=== PATIENT | female | born 1990 | race Caucasian/White ===

== ENCOUNTER 2021-09-08 15:57 | Emergency (ER) | payer OTHER ==
[2021-09-08] MEDS ORDERED: ACETAMINOPHEN 325 MG TABLET PO STA (17:09)
--- NOTE | 2021-09-08 17:09 | ED Physician Documentation ---
PD HPI FEMALE - Stated complaint Stated Complaint: POST OP BLEEDING/FEMALE - Chief complaint Chief Complaint: Abd Pain - History obtained from History obtained from: Patient - Additional information Additional information: Had a [facility]. Has not had sex yet but started working out with her prosthetic makeup designer permission about a week ago and started to having some bleeding. She stopped working out but bleeding became progressive and is now going through a pad an hour and feeling weak and dizzy. Review of Systems Ten Systems: 10 systems reviewed and negative Constitutional: denies: Fever, Chills Nose: denies: Rhinorrhea / runny nose, Congestion Cardiac: reports: Reviewed and negative Respiratory: reports: Reviewed and negative PD PAST MEDICAL HISTORY - Present Medications Home Medications: Ambulatory Orders Medication Instructions Recorded Confirmed Etonogestrel/Ethinyl Estradiol 09/08/21 [Nuvaring Vaginal Ring] - Allergies Allergies/Adverse Reactions: Allergies Allergy/AdvReac Type Severity Reaction Status Date / Time Sulfa (Sulfonamide Allergy Rash Verified 09/08/21 16:24 Antibiotics) PD ED PE NORMAL - Vitals Vital signs reviewed: Yes - General General: Alert and oriented X 3, No acute distress - HEENT HEENT: PERRL, EOMI - Neck Neck: Supple, no meningeal sign, No bony TTP - Cardiac Cardiac: RRR, No murmur - Respiratory Respiratory: No respiratory distress, Clear bilaterally - Abdomen Abdomen: Normal bowel sounds, Soft, Non tender - Female Female : Other (Pelvic exam deferred as the prosthetic makeup designer was coming in anyway and there was a high risk that she would probably need an intervention of some sort given the complaint.) - Extremities Extremities: No edema, No calf tenderness / cord - Neuro Neuro: Alert and oriented X 3, Normal speech Results - Vitals Vitals: Vital Signs - 24 hr 09/08/21 09/08/21 09/08/21 16:18 16:23 18:23 Temperature 35.4 C L 36.5 C 36.5 C Heart Rate 80 80 80 Respiratory 18 18 16 Rate Blood Pressure 122/69 122/69 120/60 O2 Saturation 96 96 96 Oxygen O2 Source Room air - Labs Labs: Laboratory Tests 09/08/21 09/08/21 09/08/21 16:55 16:55 16:55 WBC 5.4 RBC 4.67 Hgb 13.9 Hct 42.2 MCV 90.4 MCH 29.8 MCHC 32.9 RDW 12.3 Plt Count 239 MPV 10.5 Neut # (Auto) 3.3 Lymph # (Auto) 1.4 L [place] # (Auto) 0.5 Eos # (Auto) 0.1 Baso # (Auto) 0.0 Absolute Nucleated RBC 0.00 Nucleated RBC % 0.0 Sodium 136 Potassium 4.1 Chloride 102 Carbon Dioxide 24 Anion Gap 10.0 BUN 15 Creatinine 0.7 Estimated GFR (MDRD) 98 Glucose 90 Calcium 9.2 Total Bilirubin 0.4 AST 20 ALT 14 Alkaline Phosphatase 41 L Total Protein 7.4 Albumin 4.0 Globulin 3.4 Albumin/Globulin Ratio 1.2 Lipase 41 Serum HCG, Qual NEGATIVE PD MEDICAL DECISION MAKING - ED course ED course: She was seen by Dr. Toribio, gynecology. She cauterized there was bleeding area on her LEEP incision. Departure - Departure Disposition: 01 Home, Self Care Clinical Impression: Bleeding of cervix, Postoperative bleeding from incision Condition: Good Record reviewed to determine appropriate education?: Yes Comments: No exercise or sex until you follow-up with your prosthetic makeup designer next week as scheduled. Return for new or worsening symptoms. Blood work is normal with no evidence of anemia. Discharge Date/Time: 09/08/21 18:31
[2021-09-08 17:13] LABS: BASOPHILS % (AUTO) 0.6 %; EOSINOPHILS # (AUTO) 0.1 10^3/uL (0.0-0.7); EOSINOPHILS % (AUTO) 2.4 %; HCT - HEMATOCRIT 42.2 % (37.0-47.0); HGB - HEMOGLOBIN 13.9 g/dL (12.0-16.0); LYMPHOCYTES # (AUTO) 1.4 10^3/uL (1.5-3.5); LYMPHOCYTES % (AUTO) 25.8 %; MEAN CORPUSCULAR HEMOGLOBIN 29.8 pg (27.0-31.0); MEAN CORPUSCULAR HGB CONC 32.9 g/dL (32.0-36.0); MEAN CORPUSCULAR VOLUME 90.4 fL (81.0-99.0); MEAN PLATELET VOLUME 10.5 fL (7.9-10.8); MONOCYTES # (AUTO) 0.5 10^3/uL (0.0-1.0); MONOCYTES % (AUTO) 9.9 %; NEUTROPHILS # (AUTO) 3.3 10^3/uL (1.5-6.6); NEUTROPHILS % (AUTO) 61.1 %; PLT - PLATELET COUNT 239 10^3/uL (130-450); RED BLOOD COUNT 4.67 10^6/uL (4.20-5.40); RED CELL DISTRIBUTION WIDTH 12.3 % (12.0-15.0); WHITE BLOOD COUNT 5.4 x10^3/uL (4.8-10.8)
[2021-09-08 17:17] LABS: ALBUMIN/GLOBULIN RATIO 1.2 (1.0-2.2); BILIRUBIN,TOTAL 0.4 mg/dL (0.2-1.0); CALCIUM 9.2 mg/dL (8.5-10.3); CREATININE 0.7 mg/dL (0.4-1.0); POTASSIUM 4.1 mmol/L (3.5-5.0); TOTAL PROTEIN 7.4 g/dL (6.7-8.2)
[2021-09-08 17:47] LABS: HCG,QUALITATIVE BLOOD NEGATIVE
[2021-09-08] MEDS ORDERED: IBUPROFEN 600 MG TABLET PO STA (18:14)
[2021-09-08 18:31] VITALS: BP 120/60
--- NOTE | 2021-10-01 23:42 | CONSULTATION NOTE ---
Referring Provider Name of Referring Provider:: Dr. Alexander Consult Date: 09/08/21 History of Present Illness - History of Present Illness HPI Comment/Other: Patient is a 30 yo F who presents with vaginal bleeding s/p LEEP on 09/08/21 HPI: Patient presented to ED with vaginal bleeding after extensive exercise. No recent IC. Had undergone at [facility]21. Dr. Alexander requested CONTINUOUS MINER OPERATOR HELPER assessment. No pain/fever/chills. Moderate flow of blood. No lightheadedness or dizziness. ROS: As per HPI, otherwise remaining systems are negative. PE: VS: 97.7 80 120/60 16 96% GEN: NAD HEENT: NCAT RESP: normal effort CV: RR ABD: S&NT/ND PSYCH: appropriate affect NEURO: A&O EXT: WWP. no LE edema CONTINUOUS MINER OPERATOR HELPER: Normal appearing external female genitalia. Nl BSUMA. Speculum exam revealed normal vaginal mucosa with moderate blood in vault. Cervix with healing LEEP bed with bleeding at wound edge at 8:00. Silver nitrate applied to area of bleeding. Good hemostasis noted. A/P: 30 yo F with post-LEEP bleeding -Silver nitrate applied to LEEP bed. Good hemostasis noted -Recommended extending pelvic rest an additional 2 weeks -Warning signs reviewed -Cleared for DC per CONTINUOUS MINER OPERATOR HELPER assessment Meds/Allgy - Home Medications Home Medications: Ambulatory Orders Medication Instructions Recorded Confirmed Etonogestrel/Ethinyl Estradiol 1 applic IU ONCE 09/08/21 09/25/21 [Nuvaring Vaginal Ring] - Allergies Allergies/Adverse Reactions: Allergies Allergy/AdvReac Type Severity Reaction Status Date / Time Sulfa (Sulfonamide Allergy Rash Verified 09/25/21 12:30 Antibiotics) Conclusion/Plan - Lab Results Fish Bones: 09/08/21 16:55 09/08/21 16:55
== END 2021-09-08 18:31 | disposition home or self-care (01) ==
LOC: ED 15:57
DX: N99.820 Postprocedural hemorrhage of a genitourinary system organ or structure following a genitourinary system procedure (principal)
CPT/HCPCS: 36415; 80053; 83690; 84703; 85025; 99282; 99283; A9270

== ENCOUNTER 2021-09-25 12:22 | Emergency (ER) | payer OTHER ==
--- NOTE | 2021-09-25 12:42 | ED Physician Documentation ---
PD HPI FEMALE - Stated complaint Stated Complaint: SURGERY COMPLICATIONS - Chief complaint Chief Complaint: Abd Pain - History obtained from History obtained from: Patient - Additional information Additional information: She had a LEEP procedure on August 19. Subsequently was seen here on September 08 for bleeding. OB consulted and cauterized it. She was doing well since then but had a very light jog yesterday and last night started bleeding and today the bleeding is much heavier. She does have mild cramping with it. Review of Systems Constitutional: denies: Fever, Chills GI: reports: Reviewed and negative : reports: Reviewed and negative PD PAST MEDICAL HISTORY - Past Medical History Past Medical History: Yes Cardiovascular: None Respiratory: None Neuro: None Endocrine/Autoimmune: None GI: None CAR SHAGGER: Other : None HEENT: None Psych: None Musculoskeletal: None Derm: None - Past Surgical History Past Surgical History: Yes /CAR SHAGGER: LEEP (Cervical surgery) - Present Medications Home Medications: Ambulatory Orders Medication Instructions Recorded Confirmed Etonogestrel/Ethinyl Estradiol 1 applic IU ONCE 09/08/21 09/25/21 [Nuvaring Vaginal Ring] - Allergies Allergies/Adverse Reactions: Allergies Allergy/AdvReac Type Severity Reaction Status Date / Time Sulfa (Sulfonamide Allergy Rash Verified 09/25/21 12:30 Antibiotics) - Social History Does the pt smoke?: No Smoking Status: Never smoker - Immunizations Immunizations are current?: Yes PD ED PE NORMAL - Vitals Vital signs reviewed: Yes - General General: Alert and oriented X 3, No acute distress - Abdomen Abdomen: Normal bowel sounds, Soft, Non tender - Derm Derm: Normal color, Warm and dry - Extremities Extremities: No edema, No calf tenderness / cord - Neuro Neuro: Alert and oriented X 3, Normal speech Results - Vitals Vitals: Vital Signs - 24 hr 09/25/21 09/25/21 12:31 13:37 Temperature 36.8 C Heart Rate 66 65 Respiratory 16 16 Rate Blood Pressure 115/71 109/89 H O2 Saturation 97 99 Oxygen O2 Source Room air - Labs Labs: Laboratory Tests 09/25/21 09/25/21 09/25/21 12:52 12:52 12:52 WBC 3.4 L RBC 4.25 Hgb 12.7 Hct 37.6 MCV 88.5 MCH 29.9 MCHC 33.8 RDW 12.5 Plt Count 193 MPV 10.7 Neut # (Auto) 1.8 Lymph # (Auto) 1.2 L [place] # (Auto) 0.4 Eos # (Auto) 0.1 Baso # (Auto) 0.0 Absolute Nucleated RBC 0.00 Nucleated RBC % 0.0 Sodium 136 Potassium 4.0 Chloride 103 Carbon Dioxide 24 Anion Gap 9.0 BUN 12 Creatinine 0.6 Estimated GFR (MDRD) 117 Glucose 83 Calcium 9.0 Serum HCG, Qual NEGATIVE Blood Type Antibody Screen 09/25/21 12:52 WBC RBC Hgb Hct MCV MCH MCHC RDW Plt Count MPV Neut # (Auto) Lymph # (Auto) [place] # (Auto) Eos # (Auto) Baso # (Auto) Absolute Nucleated RBC Nucleated RBC % Sodium Potassium Chloride Carbon Dioxide Anion Gap BUN Creatinine Estimated GFR (MDRD) Glucose Calcium Serum HCG, Qual Blood Type A NEGATIVE Antibody Screen NEGATIVE PD MEDICAL DECISION MAKING - ED course ED course: Spoke with PRINT OPERATOR media sales consultant, Dr. Cochran at 1246, she will come and see the patient. Requests blood be drawn in the interim. On-call OB did come and see the patient and cauterized her again. Departure - Departure Disposition: Home, Self Care Clinical Impression: Bleeding of cervix, Postoperative bleeding from incision Condition: Good Record reviewed to determine appropriate education?: Yes Instructions: ED Bleed Irregular Vaginal Comments: Return if you worsen, follow-up with your PRINT OPERATOR in a week or so.
[2021-09-25 12:59] LABS: BASOPHILS % (AUTO) 0.6 %; EOSINOPHILS # (AUTO) 0.1 10^3/uL (0.0-0.7); HCT - HEMATOCRIT 37.6 % (37.0-47.0); HGB - HEMOGLOBIN 12.7 g/dL (12.0-16.0); LYMPHOCYTES # (AUTO) 1.2 10^3/uL (1.5-3.5); LYMPHOCYTES % (AUTO) 35.1 %; MEAN CORPUSCULAR HEMOGLOBIN 29.9 pg (27.0-31.0); MEAN CORPUSCULAR HGB CONC 33.8 g/dL (32.0-36.0); MEAN CORPUSCULAR VOLUME 88.5 fL (81.0-99.0); MEAN PLATELET VOLUME 10.7 fL (7.9-10.8); MONOCYTES # (AUTO) 0.4 10^3/uL (0.0-1.0); MONOCYTES % (AUTO) 10.5 %; NEUTROPHILS # (AUTO) 1.8 10^3/uL (1.5-6.6); NEUTROPHILS % (AUTO) 51.8 %; PLT - PLATELET COUNT 193 10^3/uL (130-450); RED BLOOD COUNT 4.25 10^6/uL (4.20-5.40); RED CELL DISTRIBUTION WIDTH 12.5 % (12.0-15.0); WHITE BLOOD COUNT 3.4 x10^3/uL (4.8-10.8)
[2021-09-25 13:34] LABS: CREATININE 0.6 mg/dL (0.4-1.0)
[2021-09-25 13:38] VITALS: BP 109/89
[2021-09-25 13:45] LABS: HCG,QUALITATIVE BLOOD NEGATIVE
[2021-09-25] MEDS ORDERED: SILVER NITRATE APPLICATOR TOP STA (13:48)
--- NOTE | 2021-09-25 14:28 | CONSULTATION NOTE ---
Referring Provider Consult Date: 09/25/21 Chief Complaint - Chief Complaint Chief Complaint: vaginal bleeding History of Present Illness - History of Present Illness HPI Comment/Other: Patient presents with complaints of vaginal bleeding since yesterday. She reports a history of a LEEP on August 19. 2 weeks ago she presented to the emergency department with complaints of vaginal bleeding. Per the patient her b leeding stopped following her visit. She has since had a postop visit with her armament installer and reports having no bleeding until yesterday. She had light spotting yesterday after running 2 miles. Her bleeding reportedly became heavy with passage of large clots today. She reports using 2 pads in 1 hour. LEEP procedure. She reports pathology was negative at her follow-up visit. History - Past Medical History Cardiovascular: reports: None Respiratory: reports: None Neuro: reports: None Endocrine/Autoimmune: reports: None GI: reports: None RETAIL OPERATIONS SPECIALIST: reports: Other : reports: None HEENT: reports: None Psych: reports: None Musculoskeletal: reports: None Derm: reports: None MRSA Hx?: No - Past Surgical History /RETAIL OPERATIONS SPECIALIST: reports: LEEP (Cervical surgery) Meds/Allgy - Home Medications Home Medications: Ambulatory Orders Medication Instructions Recorded Confirmed Etonogestrel/Ethinyl Estradiol 1 applic IU ONCE 09/08/21 09/25/21 [Nuvaring Vaginal Ring] - Allergies Allergies/Adverse Reactions: Allergies Allergy/AdvReac Type Severity Reaction Status Date / Time Sulfa (Sulfonamide Allergy Rash Verified 09/25/21 12:30 Antibiotics) Exam - Vital Signs Reviewed Vital Signs: Yes Vital Signs: Vital Signs x48h Temp Pulse Resp BP Pulse Ox 09/25/21 13:37 65 16 109/89 H 99 09/25/21 12:31 98.2 F 66 16 115/71 97 - Physical Exam General Appearance: positive: No acute distress Respiratory: positive: No respiratory distress Abdomen: positive: Non-tender Comments/Other: Sterile speculum examapproximately 10 cc of dark-colored blood in the vaginal vault. Cervix with superficial excoriations noted. No active bleeding. Silver nitrate applied. Wet prep, gonorrhea and chlamydia sent. Conclusion/Plan - Lab Results Lab results reviewed: Yes Fish Bones: 09/25/21 12:52 09/25/21 12:52 - Other Other Results/Comments: 30-year-old approximately 6 weeks status post LEEP procedure who presents with vaginal bleeding Vaginal bleedingcervix with superficial excoriations noted no active bleeding. Hemoglobin within normal limits. Silver nitrate applied. Patency counseled extensively to report to the emergency department for heavy bleeding. Recommend follow-up with manager of application development. Consider bleeding possibly from menstrual cycle versus Postoperative bleeding from LEEP procedure.
[2021-09-25 16:59] LABS: BACTERIAL VAGINOSIS DNA NEGATIVE (NEGATIVE); CANDIDA GLABRATA DNA NEGATIVE (NEGATIVE); CANDIDA GROUP DNA NEGATIVE (NEGATIVE); CANDIDA KRUSEI DNA NEGATIVE (NEGATIVE); TRICHOMONAS VAGINALIS DNA NEGATIVE (NEGATIVE)
[2021-09-26 03:22] LABS: CHLAMYDIA TRACHOMATIS DNA NEGATIVE (NEGATIVE); NEISSERIA GONORRHOEAE DNA NEGATIVE (NEGATIVE)
== END 2021-09-25 14:30 | disposition home or self-care (01) ==
LOC: ED 12:22
DX: N99.820 Postprocedural hemorrhage of a genitourinary system organ or structure following a genitourinary system procedure (principal)
CPT/HCPCS: 36415; 80048; 81514; 84703; 85025; 86850; 86900; 86901; 87491; 87591; 87661; 99283